=== PATIENT | female | born 1980 | race African-American/Black ===

== ENCOUNTER 2017-11-28 08:31 | Emergency (ER) | payer OTHER ==
[2017-11-28 08:51] VITALS: BP 107/66; PULSE 80; TEMP 98.8; BMI 27.1
--- NOTE | 2017-11-28 09:10 | PDOC ---
History of Present Illness - General Chief Complaint: Urinary Problem Stated Complaint: REVISIT, R/O UTI Time Seen by Provider: 11/28/17 08:55 History Source: Patient Exam Limitations: No Limitations - History of Present Illness Travel History: No Timing/Duration: reports: getting worse Quality: reports: moderate, cramping Abdominal Pain Onset Location: reports: suprapubic Past History - Travel Traveled outside of the country in the last 30 days: No Close contact w/someone who was outside of country & ill: No - Past Medical History Allergies/Adverse Reactions: Allergies Allergy/AdvReac Type Severity Reaction Status Date / Time No Known Allergies Allergy Verified 11/28/17 08:43 Home Medications: Ambulatory Orders Metronidazole 0.75% Vag. Gel [Metrogel 0.75% *Vaginal Gel* -] 1 applic VG HS 5 Days #1 tube 11/28/17 COPD: No - Suicide/Smoking/Psychosocial Hx Smoking History: Unknown if ever smoked Have you smoked in the past 12 months: No Information on smoking cessation initiated: No Hx Alcohol Use: No Drug/Substance Use Hx: No Substance Use Type: None Review of Systems - Review of Systems Able to Perform ROS?: Yes Is the patient limited Upper Sorbian proficient: Yes Constitutional: Yes: Symptoms Reported, See HPI, Loss of Appetite, Malaise Respiratory: Yes: See HPI. No: Symptoms reported, Cough : Yes: See HPI, Burning, Discharge (grayish color with fishy odor), Flank Pain , Other (denies sores or lesions, has had no sexual partner for 6 months). No: Symptoms Reported, Frequency Integumentary: Yes: See HPI. No: Symptoms Reported All Other Systems: Reviewed and Negative *Physical Exam - Vital Signs Last Vital Signs Temp Pulse Resp BP Pulse Ox 98.8 F 80 18 107/66 100 11/28/17 08:48 11/28/17 08:48 11/28/17 08:48 11/28/17 08:48 11/28/17 08:48 - Physical Exam General Appearance: Yes: Nourished, Appropriately Dressed. No: Apparent Distress HEENT: positive: MARY, Normal ENT Inspection, TMs Normal, Pharynx Normal Neck: positive: Supple Respiratory/Chest: positive: Lungs Clear, Normal Breath Sounds Gastrointestinal/Abdominal: positive: Normal Bowel Sounds, Soft. negative: Tender Musculoskeletal: positive: Normal Inspection. negative: CVA Tenderness, Muscle Spasm Integumentary: positive: Normal Color Neurologic: positive: engineering intern II-XII NML intact, Fully Oriented, Alert, Normal Mood/ Affect, Normal Response, Motor Strength 5/5 Progress Note - Progress Note Progress Note: Urinalysis negative for any evidence of bacterial infection. Due to symptoms and odor we will treat for bacterial vaginosis and encourage patient to follow up with [facility] in a week for reevaluation *DC/Admit/Observation/Transfer Diagnosis at time of Disposition: Bacterial vaginosis - Discharge Dispostion Disposition: HOME Condition at time of disposition: Stable Admit: No - Prescriptions Prescriptions: Metronidazole 0.75% Vag. Gel [Metrogel 0.75% *Vaginal Gel* -] 1 applic VG HS 5 Days #1 tube - Referrals Referrals: Kimberly Diop [Primary Care Provider] - - Patient Instructions Printed Discharge Instructions: DI for Bacterial Vaginosis Additional Instructions: Rest, avoid strenuous activity or exercise until symptoms resolve Avoid tight fitting clothes, use cotton and loosefitting This is not necessarily a sexually transmitted disease, women acquire this disease from multiple different reasons some of them unknown Do not douche but keep vaginal area clean with soap and water, May take sitz baths Always use condoms with the partners until symptoms resolve MetroGel one applicator at night Followup with [facility] in one week for reevaluation and retesting. - Post Discharge Activity Forms/Work/School Notes: Back to Work
[2017-11-28 09:17] LABS: HCG,QUALITATIVE URINE NEGATIVE
[2017-11-28 09:19] LABS: URINE APPEARANCE CLEAR; URINE BILIRUBIN NEGATIVE (NEGATIVE); URINE BLOOD NEGATIVE (NEGATIVE); URINE COLOR YELLOW; URINE GLUCOSE (UA) NEGATIVE (NEGATIVE); URINE KETONE NEGATIVE (NEGATIVE); URINE LEUK ESTERASE NEGATIVE (NEGATIVE); URINE NITRITE NEGATIVE (NEGATIVE); URINE PROTEIN NEGATIVE (NEGATIVE); URINE UROBILINOGEN NEGATIVE mg/dL (0.2-1.0)
== END 2017-11-28 10:11 | disposition home or self-care (01) ==
LOC: JERFT 08:31
DX: N76.0 Acute vaginitis (principal); B96.89 Other specified bacterial agents as the cause of diseases classified elsewhere
CPT/HCPCS: 81003; 84703; 87086; 99281-25

== ENCOUNTER 2018-11-02 12:19 | Emergency (ER) | payer OTHER ==
[2018-11-02 12:24] VITALS: BP 140/85; PULSE 75; TEMP 97.8; BMI 34.2
[2018-11-02] MEDS ORDERED: KETOROLAC TROMETHAMINE 60 MG/2 ML VIAL IM ONE (13:06)
[2018-11-02] MEDS ORDERED: KETOROLAC TROMETHAMINE 60 MG/2 ML VIAL ONE (13:08)
--- NOTE | 2018-11-02 13:13 | PDOC ---
History of Present Illness - General Chief Complaint: Back Pain Stated Complaint: BACK PAIN Time Seen by Provider: 11/02/18 13:00 History Source: Patient Exam Limitations: Clinical Condition - History of Present Illness Initial Comments: 11/02/18 13:45 Patient with no significant past medication present with complaint of 4 day history of pain to left side of mid back which has not been improving with Aleve. Patient denies any trauma or injury to back. Patient denies any urinary, frequency urgency or dysuria. Patient denies any nausea or vomiting or fevers. Patient reported increased pain when getting up from laying position or sitting position. Patient denies any other symptoms. Patient on menstrual period right now. Timing/Duration: other (4 days) Past History - Past Medical History Allergies/Adverse Reactions: Allergies Allergy/AdvReac Type Severity Reaction Status Date / Time No Known Allergies Allergy Verified 11/02/18 12:21 Home Medications: Ambulatory Orders Methocarbamol [Robaxin -] 500 mg PO TID PRN #21 tablet 11/02/18 Sennosides/Docusate Sodium [Colace 2-in-1 Tablet] 1 each PO Q8H PRN #20 tablet 11/02/18 Simethicone [Phazyme] 250 mg PO Q8H PRN #20 capsule 11/02/18 COPD: No - Suicide/Smoking/Psychosocial Hx Smoking History: Never smoked Have you smoked in the past 12 months: No Information on smoking cessation initiated: No Hx Alcohol Use: No Drug/Substance Use Hx: No Substance Use Type: None Review of Systems - Review of Systems Able to Perform ROS?: Yes Is the patient limited Turkmen proficient: No Constitutional: No: Chills, Fever HEENTM: No: Symptoms Reported Respiratory: No: Symptoms reported, See HPI, Cough, Orthopnea, Shortness of Breath, SOB with Exertion, SOB at Rest, Stridor, Wheezing, Productive cough, Hemoptysis, Other Cardiac (ROS): No: Symptoms Reported, See HPI, Chest Pain, Edema, Irregular Heart Rate, Lightheadedness, Palpitations, Syncope, Chest Tightness, Other ABD/GI: Yes: Abdominal cramping. No: Constipated, Diarrhea, Nausea, Vomiting : Yes: See HPI. No: Burning, Dysuria, Discharge, Frequency, Flank Pain, Hematuria, Urgency Musculoskeletal: Yes: Back Pain (left side mid-back), Muscle Pain (left mid-back ) All Other Systems: Reviewed and Negative *Physical Exam - Vital Signs Last Vital Signs Temp Pulse Resp BP Pulse Ox 97.8 F 75 16 140/85 100 11/02/18 12:22 11/02/18 12:22 11/02/18 12:22 11/02/18 12:22 11/02/18 12:22 - Physical Exam Comments: 11/02/18 13:47 GENERAL: Well developed, well nourished. Awake and alert. No acute distress. CARDIOVASCULAR: Regular rate and rhythm. No murmurs, rubs, or gallops. PULMONARY: No evidence of respiratory distress. Lungs clear to auscultation bilaterally. No wheezing, rales or rhonchi. ABDOMINAL: Soft. Non-tender. Non-distended. No rebound or guarding. No organomegaly. Normoactive bowel sounds MUSCULOSKELETAL : mild tenderness over posterior paravertebral muscle of thoracic spine of T8-T10 on left sides. No bony deformities EXTREMITIES: No cyanosis. No clubbing. No edema. No calf tenderness. SKIN: Warm and dry. Normal capillary refill. No rashes. No jaundice. NEUROLOGICAL: Alert, awake, appropriate. No motor deficits in the lower extremities. Gait is normal without ataxia. PSYCHIATRIC: Cooperative. Good eye contact. Appropriate mood and affect. General Appearance: Yes: Nourished, Appropriately Dressed. No: Apparent Distress Moderate Sedation - Procedure Monitoring Vital Signs: Procedure Monitoring Vital Signs Temperature 97.8 F 11/02/18 12:22 Pulse Rate 75 11/02/18 12:22 Respiratory Rate 16 11/02/18 12:22 Blood Pressure 140/85 11/02/18 12:22 O2 Sat by Pulse Oximetry (%) 100 11/02/18 12:22 ED Treatment Course - RADIOLOGY Radiology Studies Ordered: Category Date Time Status KUB (KID UR & BLAD) [RAD] Stat Radiology 11/02/18 13:06 Ordered - Medications Given in the ED: ED Medications Discontinued Medications Generic Name Dose Route Start Last Admin Trade Name Freq PRN Reason Stop Dose Admin Ketorolac Tromethamine 60 mg 11/02/18 13:06 11/02/18 13:13 Toradol Injection - IM 11/02/18 13:07 60 mg ONCE ONE Administration Medical Decision Making - Medical Decision Making 11/02/18 13:48 Patient with no significant past medical history present with complaint of pain to left mid back pain for 4 days which has been persistent and not improving with aleve. Patient denies any other symptoms. Clinical exam significant for mild tenderness to left paravertebral muscle on the lower thoracic and upper lumbar spine. UA, urine culture labs ordered. Urine hCG lab ordered. KUB x-ray ordered to rule out kidney stone. Toradol 60 mg IM for pain. 11/02/18 14:28 Patient sure she is not and does not want to wait for urine hCG before x-ray. Patient signed waiver for x-ray 11/02/18 15:11 KUB x-ray read by me shows diffuse increased gas and left upper quadrant and left lower quadrant with mildly dilated bowel. Symptoms likely gas pain and patient given Mylanta and report starting to feel better. Patient is stable for discharge with outpatient treatment for constipation and bloating with GI follow -up as needed. *DC/Admit/Observation/Transfer Diagnosis at time of Disposition: Abdominal gas pain Constipation Qualifiers: Constipation type: unspecified constipation type Qualified Code(s): K59.00 - Constipation, unspecified - Discharge Dispostion Disposition: HOME Condition at time of disposition: Stable Decision to Admit order: No - Prescriptions Prescriptions: Methocarbamol [Robaxin -] 500 mg PO TID PRN #21 tablet PRN Reason: Back Pain Sennosides/Docusate Sodium [Colace 2-in-1 Tablet] 1 each PO Q8H PRN #20 tablet PRN Reason: Constipation Simethicone [Phazyme] 250 mg PO Q8H PRN #20 capsule PRN Reason: gas pain - Referrals Referrals: Ronald Martinez MD [Staff Physician] - - Patient Instructions Printed Discharge Instructions: Avoiding Gas-producing Foods Additional Instructions: Medication as prescribed. Follow-up referred to GI doctor if symptoms persist for more than 3 days. - Post Discharge Activity
[2018-11-02] MEDS ORDERED: MAG HYDROX/AL HYDROX/SIMETH 30 ML UNIT-DOSE CUP PO ONE (14:48)
[2018-11-02] MEDS ORDERED: MAG HYDROX/AL HYDROX/SIMETH 30 ML UNIT-DOSE CUP ONE (14:50)
== END 2018-11-02 14:56 | disposition home or self-care (01) ==
LOC: JERFT 12:19
PROC: 3E0233Z Introduction of Anti-inflammatory into Muscle, Percutaneous Approach (ICD-10-PCS; principal; 2018-11-02)
DX: K59.00 Constipation, unspecified (principal); R14.1 Gas pain
CPT/HCPCS: 36415; 74018-TC-FY; 87086; 87491; 87591; 99281-25